=== PATIENT | female | born 1960 | race Caucasian/White ===

== ENCOUNTER 2022-04-20 05:21 | Day surgery (SDC) | payer MEDICAID, OTHER ==
[~2022-04-20] VITALS: Ht 167.6 cm; Wt 97.1 kg
[~2022-04-20 05:21] MED LIST: NO CURRENT
[2022-04-20] MEDS ORDERED: SODIUM CHLORIDE 0.9% 1,000 ML ONE (05:37)
[2022-04-20] MEDS ORDERED: SODIUM CHLORIDE 0.9% 1,000 ML IV ONE (07:00)
[2022-04-20 07:05] LABS: COVID AG,FIA SOURCE NASAL SWAB
[2022-04-20] MEDS ORDERED: FentaNYL CITRATE PF 100 MCG/2 ML VIAL ONE (07:50)
[2022-04-20] MEDS ORDERED: MIDAZOLAM HCL 5 MG/ML VIAL ONE (07:50)
[2022-04-20] MEDS ORDERED: BUPR-290 PO (07:52)
[2022-04-20] MEDS ORDERED: PRED-729 PO (07:52)
[2022-04-20] MEDS ORDERED: METO25 PO (07:52)
[2022-04-20] MEDS ORDERED: PANT-31 PO (07:52)
[2022-04-20] MEDS ORDERED: SUCR1TAB PO (07:52)
[2022-04-20] MEDS ORDERED: ESCI-8 PO (08:03)
[2022-04-20] MEDS ORDERED: TRAZ-184 PO (08:03)
[2022-04-20] MEDS ORDERED: GABA-1181 PO (08:03)
[2022-04-20] MEDS ORDERED: ACET-66 PO (08:03)
[2022-04-20] MEDS ORDERED: MONT-35 PO (08:03)
[2022-04-20] MEDS ORDERED: LEVO-72 PO (08:03)
[2022-04-20] MEDS ORDERED: ASPI-1450 PO (08:03)
[2022-04-20] MEDS ORDERED: ATOR40TA28 PO (08:03)
[2022-04-20] MEDS ORDERED: FLUT16H NASAL (08:03)
[2022-04-20] MEDS ORDERED: OMEP20 PO (08:03)
[2022-04-20] MEDS ORDERED: MOME13HF IH (08:03)
[2022-04-20] MEDS ORDERED: ALBU8HFA IH (08:03)
[2022-04-20] MEDS ORDERED: PROM118S5 PO (08:03)
[2022-04-20] MEDS ORDERED: SODIUM CHLORIDE 0.9% 10 ML ONE (08:29)
[2022-04-20] MEDS ORDERED: MethylPREDNISolone SOD SUCC 125 MG/2 ML VIAL ONE (08:46)
[2022-04-20] MEDS ORDERED: MethylPREDNISolone SOD SUCC 125 MG/2 ML VIAL IVP ONE (09:00)
[2022-04-20] MEDS ORDERED: PROMETH/PHENYLEPHRINE/CODEINE 5 ML ORAL.SYG PO ONE (09:15)
[2022-04-20] MEDS ORDERED: OXYGEN THERAPY IH SCH (20:00)
== END 2022-04-20 10:50 | disposition home or self-care (01) ==
LOC: SURGERY 05:21
PROVIDERS: ATTEND Internal Medicine Critical Care Medicine
DX: J38.4 Edema of larynx (principal); B37.0 Candidal stomatitis; J43.9 Emphysema, unspecified; Z90.49 Acquired absence of other specified parts of digestive tract; Z98.890 Other specified postprocedural states; Z79.899 Other long term (current) drug therapy
CPT/HCPCS: 31623; 31624; 71045; 87015; 87070; 87101; 87206; 87220; 87426; 88108; 88184; 88185; 88305; C9803; J2250; J2370; J2930; J3010; J7030

== ENCOUNTER 2022-11-14 05:33 | Day surgery (SDC) | payer OTHER ==
[~2022-11-14] VITALS: Ht 165.1 cm; Wt 98.1 kg
[~2022-11-14 05:33] MED LIST changes: +ACET-66 PO; +ALBU8HFA IH; +ASPI-1450 PO; +ATOR40TA28 PO; +BUPR-72 PO; +ESCI-8 PO; +FLUT16SP NASAL; +GABA-1181 PO; +LEVO-72 PO; +METO25 PO; +MOME13HF11 IH; +MONT-35 PO; +OMEP20 PO; +PANT-31 PO; +PRED-729 PO; +PROM118S5 PO; +SUCR1TAB PO; +TRAZ-184 PO
[2022-11-14] MEDS ORDERED: BENZOCAINE 20% 50 MCG/SPRAY 57 GM TP ONE (05:34)
[2022-11-14] MEDS ORDERED: LIDOCAINE 2% 11 ML JELLY TP ONE (05:34)
[2022-11-14] MEDS ORDERED: LIDOCAINE 4% 50 ML SOLUTION TP ONE (05:34)
[2022-11-14] MEDS ORDERED: ALBUTEROL SULFATE 2.5 MG/0.5 ML NEB SOLUTION NEB ONE (05:34)
[2022-11-14 05:59] LABS: COVID AG,FIA SOURCE NASAL SWAB
[2022-11-14] MEDS ORDERED: SODIUM CHLORIDE 0.9% 1,000 ML ONE (06:38)
[2022-11-14] MEDS ORDERED: SODIUM CHLORIDE 0.9% 1,000 ML IV ONE (07:00)
[2022-11-14] MEDS ORDERED: MIDAZOLAM HCL 2 MG/2 ML VIAL ONE (07:53)
[2022-11-14] MEDS ORDERED: FentaNYL CITRATE PF 100 MCG/2 ML VIAL ONE (07:53)
[2022-11-14] MEDS ORDERED: MethylPREDNISolone SOD SUCC 125 MG/2 ML VIAL ONE (09:22)
[2022-11-14] MEDS ORDERED: MethylPREDNISolone SOD SUCC 125 MG/2 ML VIAL IVP ONE (09:30)
[2022-11-14] MEDS ORDERED: PROMETHAZINE HCL/CODEINE 6.25-10MG/5ML SYRUP UDCUP PO ONE (10:00)
[2022-11-14] MEDS ORDERED: OXYGEN THERAPY IH SCH (20:00)
== END 2022-11-14 11:15 | disposition home or self-care (01) ==
LOC: SURGERY 05:33
PROVIDERS: ATTEND Internal Medicine Critical Care Medicine
DX: J38.4 Edema of larynx (principal); B37.0 Candidal stomatitis; J43.9 Emphysema, unspecified; I11.0 Hypertensive heart disease with heart failure; E78.00 Pure hypercholesterolemia, unspecified; F32.9 Major depressive disorder, single episode, unspecified; I50.9 Heart failure, unspecified; G47.30 Sleep apnea, unspecified; Z98.890 Other specified postprocedural states; Z88.0 Allergy status to penicillin
CPT/HCPCS: 31623; 87101; 87220; 87070; 87186; 31624; 71045; 87015; 87426; 87206; J3010; J2250; J2930; Q9967; J7030; C9803; 88112; J7613; Z7610

== ENCOUNTER 2023-04-24 06:40 | Day surgery (SDC) | payer OTHER ==
[~2023-04-24] VITALS: Ht 165.1 cm; Wt 99.8 kg
[~2023-04-24 06:40] MED LIST changes: +ALBU18HF12 IH; -ALBU8HFA IH
[2023-04-24] MEDS ORDERED: LIDOCAINE 2% 11 ML JELLY TP ONE (06:41)
[2023-04-24] MEDS ORDERED: LIDOCAINE 4% 50 ML SOLUTION TP ONE (06:41)
[2023-04-24] MEDS ORDERED: BENZOCAINE 20% 50 MCG/SPRAY 57 GM TP ONE (06:41)
[2023-04-24] MEDS ORDERED: ALBUTEROL SULFATE 2.5 MG/0.5 ML NEB SOLUTION NEB ONE (06:41)
[2023-04-24] MEDS ORDERED: SODIUM CHLORIDE 0.9% 1,000 ML IV ONE (07:00)
[2023-04-24] MEDS ORDERED: SODIUM CHLORIDE 0.9% 100 ML ONE (07:26)
[2023-04-24] MEDS ORDERED: FentaNYL CITRATE PF 100 MCG/2 ML VIAL ONE (07:57)
[2023-04-24] MEDS ORDERED: MIDAZOLAM HCL 2 MG/2 ML VIAL ONE (07:58)
[2023-04-24] MEDS ORDERED: VARE1TAB25 PO (08:03)
[2023-04-24] MEDS ORDERED: AZIT-103 PO (08:03)
[2023-04-24] MEDS ORDERED: LISI-893 PO (08:07)
[2023-04-24 09:23] VITALS: PULSE 60; RESP 16; O2SAT 100
[2023-04-24] MEDS ORDERED: MethylPREDNISolone SOD SUCC 125 MG/2 ML VIAL IVP ONE (09:30)
== END 2023-04-24 11:30 | disposition home or self-care (01) ==
LOC: SURGERY 06:40
PROVIDERS: ATTEND Internal Medicine Critical Care Medicine
DX: J38.4 Edema of larynx (principal); B37.0 Candidal stomatitis; F32.A Depression, unspecified; E78.00 Pure hypercholesterolemia, unspecified; J43.9 Emphysema, unspecified; I11.0 Hypertensive heart disease with heart failure; I50.9 Heart failure, unspecified; G47.30 Sleep apnea, unspecified; F17.210 Nicotine dependence, cigarettes, uncomplicated; Z98.890 Other specified postprocedural states; Z88.0 Allergy status to penicillin; Z79.899 Other long term (current) drug therapy
CPT/HCPCS: 31623; 88112; 87206; 87101; 87220; 87070; 31624; 94640; 71045; 87015; J3010; J2250; J2930; Q9967; J7050; J7613; Z7610

== ENCOUNTER 2024-04-13 06:39 | Day surgery (SDC) | payer OTHER ==
[~2024-04-13] VITALS: Ht 165.1 cm; Wt 88.6 kg
[~2024-04-13 06:39] MED LIST changes: +AZIT-103 PO; -BUPR-72 PO; -ESCI-8 PO; -GABA-1181 PO; -LEVO-72 PO; +LISI-893 PO; -MOME13HF11 IH; -PANT-31 PO; +SODIUM CHLORIDE 0.9% 1,000 ML ONE; -SUCR1TAB PO; -TRAZ-184 PO; +VARE1TAB25 PO
[2024-04-13] MEDS: SODIUM CHLORIDE 0.9% 1,000 ML IV ONE (07:13)
[2024-04-13] MEDS ORDERED: TRIP1TAB14 PO (07:17)
[2024-04-13] MEDS ORDERED: SUCR1TAB PO (07:17)
[2024-04-13] MEDS ORDERED: MIDAZOLAM HCL 2 MG/2 ML VIAL ONE (08:01)
[2024-04-13] MEDS ORDERED: FentaNYL CITRATE PF 100 MCG/2 ML VIAL ONE (08:02)
[2024-04-13 08:55] VITALS: PULSE 59; RESP 20; O2SAT 100
[2024-04-13] MEDS ORDERED: MethylPREDNISolone SOD SUCC 125 MG/2 ML VIAL ONE (09:20)
[2024-04-13] MEDS: MethylPREDNISolone SOD SUCC 125 MG/2 ML VIAL IVP ONE (09:35)
[2024-04-13] MEDS ORDERED: LIDOCAINE 2% 11 ML JELLY ONE (12:00)
[2024-04-13] MEDS ORDERED: BENZOCAINE 20% 50 MCG/SPRAY 57 GM ONE (12:00)
[2024-04-13] MEDS ORDERED: LIDOCAINE 4% 50 ML SOLUTION ONE (12:00)
[2024-04-13] MEDS ORDERED: ALBUTEROL SULFATE 2.5 MG/0.5 ML NEB SOLUTION NEB ONE (12:00)
== END 2024-04-13 11:00 | disposition home or self-care (01) ==
LOC: SURGERY 06:39
PROVIDERS: ATTEND Internal Medicine Critical Care Medicine
DX: R05.3 Chronic cough (principal); R06.2 Wheezing; J91.8 Pleural effusion in other conditions classified elsewhere; J98.09 Other diseases of bronchus, not elsewhere classified; J84.10 Pulmonary fibrosis, unspecified; Z88.0 Allergy status to penicillin; G47.30 Sleep apnea, unspecified; J44.9 Chronic obstructive pulmonary disease, unspecified; I11.0 Hypertensive heart disease with heart failure; I50.9 Heart failure, unspecified; K76.0 Fatty (change of) liver, not elsewhere classified; E78.00 Pure hypercholesterolemia, unspecified; F32.A Depression, unspecified; Z79.899 Other long term (current) drug therapy
CPT/HCPCS: 87206; 87101; 87220; 87070; 31623; 31624; 71045; 87015; J3010; J2250; J2919; Q9967; J7030; J7613; Z7610